=== PATIENT | male | born 1995 | race African-American/Black ===

== ENCOUNTER 2019-10-16 15:30 | Emergency (ER) | payer OTHER ==
[2019-10-16 15:34] VITALS: RESP 20; TEMP 98.6
[2019-10-16] MEDS ORDERED: ACET/COD 300 MG/30 MG STARTER PACK 6 TAB BTL PO STA (15:46)
[2019-10-16] MEDS ORDERED: LIDOCAINE 1%-EPI 1:100,000 20 ML VIAL SQ STA (15:46)
[2019-10-16] MEDS ORDERED: AMOXIC-POT CLAV 875MG STARTER PACK 2 TAB BTL PO STA (15:46)
--- NOTE | 2019-10-16 15:47 | ED ---
ENT HPI - General Chief complaint: Dental/Oral Stated complaint: Dental pain Time Seen by Provider: 10/16/19 15:34 Source: patient Mode of arrival: ambulatory Limitations: no limitations - History of Present Illness Initial comments: Patient is 24-year-old male presenting to the emergency department with chief complaint of dental pain. Patient reports about 2 years ago he pulled tooth #2 and not continues to have on and off pain. States the pain has been getting worse for the last 2 weeks. Patient also reports a partial fracture 3 days ago on tooth #18. Patient reports the pain is 10 out of 10. States the pain is constant and sharp. States she has not been able to sleep. Denies any facial swelling. Does report taking [id number] analgesics minimal improvement. Does report using Orajel with minimal improvement. States he has not seen a dentist in quite a bit of time. States he has an appointment scheduled on Saturday. - Related Data Previous Rx's Medication Instructions Recorded Amoxicillin/Potassium Clav 1 tab PO Q12HR #20 tab 10/16/19 [Augmentin 875-125 Tablet] Allergies Allergy/AdvReac Type Severity Reaction Status Date / Time No Known Allergies Allergy Verified 10/16/19 15:33 Review of Systems ROS Statement: Those systems with pertinent positive or pertinent negative responses have been documented in the HPI. ROS Other: All systems not noted in ROS Statement are negative. Past Medical History Past Medical History: No Reported History History of Any Multi-Drug Resistant Organisms: Unobtainable Past Surgical History: Orthopedic Surgery Past Psychological History: No Psychological Hx Reported Smoking Status: Current every day smoker Past Alcohol Use History: None Reported Past Drug Use History: None Reported General Exam Limitations: no limitations General appearance: alert, in no apparent distress Head exam: Present: atraumatic, normocephalic, normal inspection Eye exam: Present: normal appearance, PERRL, EOMI Pupils: Present: normal accommodation ENT exam: Present: normal exam, mucous membranes moist. Absent: normal oropharynx (Poor dentition. Gingival irritation in the right upper jaw. Partial fracture of tooth #18. No signs of periapical abscesses. No other lesions detected. No signs of Olman's angina.) Neck exam: Present: normal inspection, full ROM Respiratory exam: Present: normal lung sounds bilaterally Cardiovascular Exam: Present: regular rate, normal rhythm, normal heart sounds Course Vital Signs 10/16/19 15:32 Temperature 98.6 F Pulse Rate 84 Respiratory 20 Rate Blood Pressure 137/78 O2 Sat by Pulse 99 Oximetry Procedures - Nerve Block Consent Obtained: verbal consent Local Anesthetic Used: LIDOCAINE 1% with EPI Amount of anesthesia used: 5 Side: left Intraoral Nerve Block: inferior alveolar Procedure Successful: Yes Complications: none Patient Tolerated Procedure: well, no complications Medical Decision Making - Medical Decision Making Patient is a 24-year-old male with history of poor dentition presenting to the emergency department with a chief complaint of tooth pain. On exam patient has gingival irritation in the right upper jaw. Tooth #2. Patient also appears to have a partial fracture of tooth #18. No signs of periapical abscesses. No signs of Olman's angina. Patient was given a left inferior alveolar block. Patient tolerated procedure well and it resolved the pain. Patient was also given a Tylenol 3 starter pack and advised about the possible side effects of the medication. Patient also started on Augmentin. Will be discharged with a 10 day course of Augmentin. He has an appointment on Saturday to see a dentist. Return parameters thoroughly discussed the patient was understanding and agreeable. Case discussed with physician. Disposition Clinical Impression: Tooth fracture, Acute gingival inflammation Disposition: ADMITTED IP TO THIS [facility] Condition: Stable Instructions (If sedation given, give patient instructions): Toothache (ED) Additional Instructions: Take prescribed medication as directed. Follow up with a dentist. Return to emergency department if symptoms worsen. Is patient prescribed a controlled substance at d/c from ED?: No Referrals: None,Stated [Primary Care Provider] - 1-2 days Time of Disposition: 16:36
[2019-10-16 16:46] VITALS: BP 130/83; PULSE 68
== END 2019-10-16 16:47 | disposition other institution (70) ==
LOC: EC 15:30
DX: S02.5XXA Fracture of tooth (traumatic), initial encounter for closed fracture (principal); K05.00 Acute gingivitis, plaque induced; F17.200 Nicotine dependence, unspecified, uncomplicated; X58.XXXA Exposure to other specified factors, initial encounter
CPT/HCPCS: 64400; 64450; 99284

== ENCOUNTER 2019-12-19 18:49 | Emergency (ER) | payer OTHER ==
[2019-12-19 18:57] VITALS: BP 134/63; PULSE 83; RESP 18; TEMP 99.3
[2019-12-19] MEDS ORDERED: DIPH,PERTUS(ACELL)TETVAC-LF 0.5 ML VIAL IM ONE (19:06)
[2019-12-19] MEDS ORDERED: LIDOCAINE 1% INJ 10MG/ML (20 ML MDV) SQ STA (19:25)
--- NOTE | 2019-12-19 19:55 | ED ---
Wound/Laceration HPI - General Chief Complaint: Wound/Laceration Stated Complaint: Hand lac Time Seen by Provider: 12/19/19 19:06 Source: patient, EMS Mode of arrival: EMS Limitations: no limitations - History of Present Illness Initial Comments: Patient is a 24-year-old male presenting to emergency Department with a chief complaint laceration. Patient states he lacerated his right thumb while he was in his house using a knife. Patient states this is a small laceration with some bleeding initially which has since resolved. Patient states he has full range of motion of thumb. Tetanus is not up-to-date. This occurred about one hour prior to arrival. - Related Data Previous Rx's Medication Instructions Recorded Amoxicillin/Potassium Clav 1 tab PO Q12HR #20 tab 10/16/19 [Augmentin 875-125 Tablet] Allergies Allergy/AdvReac Type Severity Reaction Status Date / Time hydromorphone [From Dilaudid] Allergy Unknown Verified 12/19/19 18:57 morphine Allergy Unknown Verified 12/19/19 18:57 Review of Systems ROS Statement: Those systems with pertinent positive or pertinent negative responses have been documented in the HPI. ROS Other: All systems not noted in ROS Statement are negative. Past Medical History Past Medical History: No Reported History History of Any Multi-Drug Resistant Organisms: None Reported Past Surgical History: Orthopedic Surgery Past Psychological History: No Psychological Hx Reported Smoking Status: Current every day smoker Past Alcohol Use History: None Reported Past Drug Use History: None Reported General Exam Limitations: no limitations General appearance: alert, in no apparent distress Head exam: Present: atraumatic, normocephalic, normal inspection Eye exam: Present: normal appearance, PERRL, EOMI Pupils: Present: normal accommodation ENT exam: Present: normal exam, normal oropharynx, mucous membranes moist, TM's normal bilaterally, normal external ear exam Neck exam: Present: normal inspection, full ROM. Absent: tenderness Respiratory exam: Present: normal lung sounds bilaterally. Absent: respiratory distress, wheezes, rales Cardiovascular Exam: Present: regular rate, normal rhythm, normal heart sounds Extremities exam: Present: full ROM (Full range of motion of the right thumb.), normal capillary refill, other (+2 ulnar and radial pulses bilateral.). Absent: normal inspection (Laceration on the dorsal aspect of the right thumb measuring partially 1 cm in length. No visible tendons or bone. This is a very superficial laceration.), tenderness Back exam: Present: normal inspection, full ROM. Absent: tenderness Neurological exam: Present: alert, oriented X3 Psychiatric exam: Present: normal affect, normal mood Skin exam: Present: warm, dry, intact, normal color Course Vital Signs 12/19/19 18:53 Temperature 99.3 F Pulse Rate 83 Respiratory 18 Rate Blood Pressure 134/63 O2 Sat by Pulse 99 Oximetry Procedures - Laceration Laceration #1 Consent Obtained: verbal consent Indication: laceration Site: hand (Right thumb) Size (cm): 1 Description: linear Depth: simple, single layer Sedation/Analgesia: none Anesthetic Used: lidocaine 1% Anesthesia Technique: local infiltration Amount (mls): 2 Pre-repair: irrigated extensively, deep structures intact Type of Sutures: nylon Size of Sutures: 4-0 Number of Sutures: 2 Technique: simple, interrupted Patient Tolerated Procedure: well, no complications Medical Decision Making - Medical Decision Making Patient is a 24-year-old male presenting to the emergency room with the chief complaint of laceration. Patient is neurovascularly intact in the right thumb. Laceration site was thoroughly irrigated. 2 sutures applied. She tolerated the procedure well. Tetanus updated. Advised to return in 7 days for suture removal. Case discussed with physician. Disposition Clinical Impression: Laceration Disposition: HOME SELF-CARE Condition: Stable Instructions (If sedation given, give patient instructions): Care For Your Stitches (DC), Laceration (DC) Additional Instructions: Return to emergency department in 7 days for suture removal. Is patient prescribed a controlled substance at d/c from ED?: No Referrals: None,Stated [Primary Care Provider] - 1-2 days Time of Disposition: 19:55
== END 2019-12-19 20:15 | disposition home or self-care (01) ==
LOC: EC 18:49
DX: S61.011A Laceration without foreign body of right thumb without damage to nail, initial encounter (principal); Z23 Encounter for immunization; F17.200 Nicotine dependence, unspecified, uncomplicated; Z88.5 Allergy status to narcotic agent; W26.0XXA Contact with knife, initial encounter; Y93.89 Activity, other specified; Y92.009 Unspecified place in unspecified non-institutional (private) residence as the place of occurrence of the external cause
CPT/HCPCS: 90715; 90471; 12001; 99283; J2001